=== PATIENT | male | born 2000 | race American Indian/Alaskan Native ===

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

== ENCOUNTER 2021-03-01 21:39 | Emergency (ER) | payer OTHER ==
[~2021-03-01] VITALS: Ht 185.4 cm; Wt 73.9 kg
[2021-03-01 21:46] VITALS: BP 116/59
--- NOTE | 2021-03-01 21:49 | NUR ---
PATIENT AMBULATED TO LOBBY WITH STEADY GAIT.
--- NOTE | 2021-03-01 22:20 | NUR ---
CALLED PATIENT BACK FOR MEDICAL EVALUATION. NO ANSWER.
--- NOTE | 2021-03-01 23:00 | NUR ---
A10 Y/O MALE CAME TO THE ED C/O THROAT PAIN. PT STATES "I HAVE A PAIN IN THE THROAT AREA, AND A LITTLE HEADACHE". DENIES N/V/D; SKIN IS PINK/WARM/DRY; AAOX4 WITH EVEN AND STEADY GAIT; LUNGS CLEAR BL; HR EVEN AND REGULAR; PT DENIES ANY FEVER, CP, SOB, OR COUGH AT THIS TIME; PATIENT STATES PAIN OF 9/10 AT THIS TIME; VSS; PATIENT POSITIONED FOR COMFORT; HOB ELEVATED; BEDRAILS UP X2; BED DOWN. ER MD MADE AWARE OF PT STATUS. NKA PMH: DENIES
[2021-03-01] MEDS ORDERED: KETOROLAC 60 MG/2 ML VIAL IM ONE (23:35)
[2021-03-01] MEDS ORDERED: DEXAMETHASONE 4 MG/ML VIAL IM ONE (23:35)
[2021-03-02 00:20] VITALS: BP 116/59
== END 2021-03-02 00:20 | disposition home or self-care (01) ==
LOC: MED 21:39
DX: J02.9 Acute pharyngitis, unspecified (principal)
CPT/HCPCS: 87081; 96372; 99284; J1100; J1885

== ENCOUNTER 2021-11-11 23:26 | Emergency (ER) | payer OTHER ==
[~2021-11-11] VITALS: Ht 182.9 cm; Wt 75.3 kg
[2021-11-11 23:35] VITALS: BP 138/94
--- NOTE | 2021-11-11 23:35 | NUR ---
TO BED AMBULATORY
--- NOTE | 2021-11-11 23:57 | NUR ---
21 Y/O MALE BIB SELF, C/O CP X2 DAYS. PATIENT PRESENTS TO ED WITH PAIN IN THE CENTER OF HID CHEST AND RADIATES OUT LATERALLY AND IN HIS BACK WHEN HE COUGHS. PT STATES THE PAIN HAS BEEN BOTHERING HIM SINCE X2WKS AGO BUT HAS GOTTEN WORSE IN THE PAST 2 DAYS. DENIES N/V/D; SKIN IS PINK/WARM/DRY; AAOX4 WITH EVEN AND STEADY GAIT; LUNGS CLEAR BL; HR EVEN AND REGULAR; PT DENIES ANY FEVER OR SOB AT THIS TIME; PATIENT STATES PAIN OF 9/10 AT THIS TIME; VSS; PATIENT POSITIONED FOR COMFORT; HOB ELEVATED; BEDRAILS UP X1; BED DOWN. ER MD MADE AWARE OF PT STATUS. MOSTLY WOLOF SPEAKING. NO PMH OR SUGERIES NKDA MEDS: CANNOT REMEMBER THE NAME OF MEDICATION FOR SEVERE ACNE
[2021-11-12] MEDS ORDERED: ASPIRIN 325 MG TAB PO ONE (00:35)
[2021-11-12] MEDS ORDERED: ALUMINUM HYD/MAG/SIMETHICONE 30 ML, DICYCLOMINE HCL LIQUID 20 MG, LIDOCAINE VISCOUS 2% ... PO ONE ×3 (00:35)
[2021-11-12] MEDS ORDERED: IBUPROFEN 400 MG TAB PO ONE (00:35)
[2021-11-12] MEDS ORDERED: NITROGLYCERIN 0.4 MG TAB SL ONE (00:35)
[2021-11-12] MEDS ORDERED: ALUMINUM HYD/MAG/SIMETHICONE 30 ML UDC ONE (00:36)
[2021-11-12] MEDS ORDERED: DICYCLOMINE HCL LIQUID 10 MG/5 ML UDC ONE (00:37)
--- NOTE | 2021-11-12 01:10 | NUR ---
XRAY AT BEDSIDE
--- NOTE | 2021-11-12 01:16 | NUR ---
LABS AT BEDSIDE
[2021-11-12 01:29] LABS: BASOPHILS # (AUTO) 0.1 K/uL (0.00-0.22); BASOPHILS % (AUTO) 0.6 % (0.0-2.0); EOSINOPHILS # (AUTO) 0.4 K/uL (0-0.4); EOSINOPHILS % (AUTO) 2.8 % (0.0-4.0); LYMPHOCYTES # (AUTO) 2.4 K/uL (2.0-11.5); LYMPHOCYTES % (AUTO) 15.9 % (20.5-51.1); MEAN CORPUSCULAR HEMOGLOBIN 28 pg (27-31); MEAN CORPUSCULAR HGB CONC 34 g/dL (33-37); MEAN CORPUSCULAR VOLUME 83.2 fL (80-94); MONOCYTES % (AUTO) 6.7 % (1.7-9.3); NEUTROPHILS # (AUTO) 11.2 K/uL (1.8-7.7); PLATELET COUNT (AUTO) 287 K/uL (140-450); RED BLOOD CELL COUNT(AUTO) 4.93 MIL/uL (4.20-6.10); RED CELL DISTRIBUTION WIDTH 12.9 % (11.6-13.7); WHITE BLOOD COUNT (AUTO) 15.2 K/uL (4.5-11.0)
[2021-11-12 01:43] LABS: ALBUMIN 3.5 g/dL (3.4-5.0); ANION GAP 13.4 (8-16); CARBON DIOXIDE 25.8 mmol/L (21-32); CREATININE 0.8 mg/dL (0.6-1.3); POTASSIUM 3.2 mmol/L (3.5-5.1); TOTAL BILIRUBIN 0.2 mg/dL (0.0-1.0)
--- NOTE | 2021-11-12 02:32 | NUR ---
LABS AT BEDSIDE FOR REPEAT TROPONIN
--- NOTE | 2021-11-12 03:02 | NUR ---
ER AT BEDSIDE
[2021-11-12 03:53] VITALS: BP 108/71
== END 2021-11-12 03:53 | disposition home or self-care (01) ==
LOC: MED 23:26
DX: R07.89 Other chest pain (principal); R06.02 Shortness of breath; F17.200 Nicotine dependence, unspecified, uncomplicated; Z71.6 Tobacco abuse counseling
CPT/HCPCS: 36415; 71045; 80053; 84484; 85025; 93005; 99285; Q0092

== ENCOUNTER 2021-12-24 15:02 | Emergency (ER) | payer OTHER ==
[~2021-12-24] VITALS: Ht 182.9 cm; Wt 72.6 kg
[2021-12-24 15:22] VITALS: BP 125/78
--- NOTE | 2021-12-24 15:29 | NUR ---
PT AMB TO [facility]
--- NOTE | 2021-12-24 15:30 | NUR ---
21 Y/O MALE C/O PAINFUL ABSCESS ON THE L EYE. PT STATE HAVING TROUBLE SEEING. PT DENIES CRUZ, FEVER, CHILLS. PT ALERT AND ORIENTED X4. PMH: DENIES MEDS: ISOTRETIONIN NKA
[2021-12-24] MEDS ORDERED: LIDOCAINE MPF 1% 10 MG/ML VIAL INJ ONE (15:45)
[2021-12-24] MEDS ORDERED: BACITRACIN OINT 500 UNITS/GM PKT TP ONE (15:45)
--- NOTE | 2021-12-24 16:05 | NUR ---
PT AMB TO BED 10
[2021-12-24] MEDS ORDERED: IBUP-2213 PO (16:46)
[2021-12-24] MEDS ORDERED: CEPH-588 PO (16:46)
[2021-12-24] MEDS ORDERED: SULF-59 PO (16:46)
[2021-12-24 16:53] VITALS: BP 125/78
--- NOTE | 2021-12-24 16:57 | NUR ---
Patient discharged with v/s stable. Written and verbal after care instructions given and explained. Patient alert, oriented and verbalized understanding of instructions. Ambulatory with steady gait. All questions addressed prior to discharge. ID band removed. Patient advised to follow up with PMD. Rx of KEFLEX, BUPROFEN, BACTRIM DS TAB given. Patient educated on indication of medication including possible reaction and side effects. Opportunity to ask questions provided and answered.
== END 2021-12-24 16:57 | disposition home or self-care (01) ==
LOC: MED 15:02
DX: H00.034 Abscess of left upper eyelid (principal); Z79.899 Other long term (current) drug therapy
CPT/HCPCS: 10060; 99283; J2001

== ENCOUNTER 2022-01-17 20:57 | Emergency (ER) | payer OTHER ==
[~2022-01-17] VITALS: Ht 182.9 cm; Wt 73.3 kg
[~2022-01-17 20:57] MED LIST: CEPH-588 PO; IBUP-2213 PO; SULF-59 PO
[2022-01-17 21:02] VITALS: BP 119/83
--- NOTE | 2022-01-17 23:01 | NUR ---
pt ambulated to bed 01
--- NOTE | 2022-01-17 23:38 | NUR ---
PT SAID HE WILL WANT TO GO AMA IF HE CANNOT LEAVE IN 1 HOUR . TOLD PT WE CANNOT GUARANTEE THAT TIME
[2022-01-17 23:55] VITALS: BP 126/70
--- NOTE | 2022-01-17 23:55 | NUR ---
EXPLAINED TO PT THERE IS NO TIMEFRAME WHE HE WILL BE DISCHARGED. PT TO SIGN OUT AMA. FORM SIGNED AND DR NOTIFIED .
--- NOTE | 2022-01-17 23:55 | NUR ---
Patient does not wish to proceed with medical care recommended by . Patient given information related to possible complications, up to and including , which could occur as a result of leaving hospital at this time. Patient verbalizes understanding of risks involved leaving against medical advice. Patient has signed AMA form.
== END 2022-01-17 23:55 | disposition left against medical advice (07) ==
LOC: MED 20:57
DX: R07.9 Chest pain, unspecified (principal)
CPT/HCPCS: 71045; 93005; 99283; Q0092

== ENCOUNTER 2023-04-29 10:06 | Emergency (ER) | payer OTHER ==
[~2023-04-29] VITALS: Ht 182.9 cm; Wt 80.7 kg
[2023-04-29 10:31] VITALS: BP 156/79; PULSE 83; RESP 20; TEMP 98; O2SAT 99
[2023-04-29 12:26] LABS: MONOTEST NEGATIVE (NEGATIVE)
[2023-04-29] MEDS ORDERED: FAMO-90 PO (12:59)
[2023-04-29] MEDS ORDERED: ONDA-188 PO (12:59)
[2023-04-29 13:35] VITALS: BP 138/75; PULSE 83; RESP 20; TEMP 98; O2SAT 99
--- NOTE | 2023-04-29 13:35 | NUR ---
Patient discharged with v/s stable. Written and verbal after care instructions FOR VOMITING AND GEN HEADACHE given and explained. Patient alert, oriented and verbalized understanding of instructions. Ambulatory with steady gait. All questions addressed prior to discharge. ID band removed. Patient advised to follow up with PMD. Rx of PEPCID AND ZOFRAN ODT given. Opportunity to ask questions provided and answered. COPY OF LABS PROVIDED
== END 2023-04-29 13:35 | disposition home or self-care (01) ==
LOC: MED 10:06
DX: R51.9 Headache, unspecified (principal); R10.9 Unspecified abdominal pain; R11.2 Nausea with vomiting, unspecified; Z79.899 Other long term (current) drug therapy
CPT/HCPCS: 86308; 99283

== ENCOUNTER 2023-05-29 11:35 | Emergency (ER) | payer OTHER ==
[~2023-05-29] VITALS: Ht 182.9 cm; Wt 80.3 kg
[~2023-05-29 11:35] MED LIST changes: +FAMO-90 PO; +ONDA-188 PO
[2023-05-29 11:58] VITALS: BP 134/74; PULSE 85; RESP 20; TEMP 98; O2SAT 99
[2023-05-29 13:59] LABS: BASOPHILS # (AUTO) 0.1 K/uL (0.00-0.22); BASOPHILS % (AUTO) 0.7 % (0.0-2.0); EOSINOPHILS # (AUTO) 0.3 K/uL (0-0.4); EOSINOPHILS % (AUTO) 3.7 % (0.0-4.0); HEMATOCRIT 45.5 % (36-52); HEMOGLOBIN 15.5 g/dL (12.0-18.0); LYMPHOCYTES % (AUTO) 25.6 % (20.5-51.1); MEAN CORPUSCULAR HEMOGLOBIN 30 pg (27-31); MEAN CORPUSCULAR HGB CONC 34 g/dL (33-37); MEAN CORPUSCULAR VOLUME 86.9 fL (80-94); MONOCYTES # (AUTO) 0.5 K/uL (0.8-1.0); MONOCYTES % (AUTO) 5.8 % (1.7-9.3); NEUTROPHILS # (AUTO) 5.1 K/uL (1.8-7.7); NEUTROPHILS % (AUTO) 64.2 % (42.2-75.2); PLATELET COUNT (AUTO) 256 K/uL (140-450); RED BLOOD CELL COUNT(AUTO) 5.24 MIL/uL (4.20-6.10); RED CELL DISTRIBUTION WIDTH 13.2 % (11.6-13.7)
[2023-05-29 14:19] LABS: ALBUMIN 4.5 g/dL (3.4-5.0); CALCIUM 9.6 mg/dL (8.5-10.1); CARBON DIOXIDE 30.9 mmol/L (21-32); CREATININE 1.1 mg/dL (0.6-1.3); POTASSIUM 3.9 mmol/L (3.5-5.1); TOTAL BILIRUBIN 0.4 mg/dL (0.0-1.0); TOTAL PROTEIN, SERUM 7.8 g/dL (6.4-8.2)
[2023-05-29 15:20] VITALS: BP 128/74; PULSE 82; RESP 20; TEMP 98; O2SAT 99
[2023-05-29] MEDS ORDERED: ONDA8TAB87 PO (16:23)
[2023-05-29] MEDS ORDERED: OMEP40EC24 PO (16:23)
[2023-05-29] MEDS ORDERED: IBUP-2213 PO (16:23)
== END 2023-05-29 16:32 | disposition home or self-care (01) ==
LOC: MED 11:35
DX: R10.13 Epigastric pain (principal); R11.2 Nausea with vomiting, unspecified; F17.200 Nicotine dependence, unspecified, uncomplicated; Z79.899 Other long term (current) drug therapy
CPT/HCPCS: 36415; 80053; 82150; 83690; 85025; 99283